=== PATIENT | female | born 1995 | race Caucasian/White ===

== ENCOUNTER 2018-06-20 06:05 | Emergency (ER) | payer SELFPAY ==
[~2018-06-20] VITALS: Ht 172.7 cm; Wt 113.4 kg
[2018-06-20] MEDS ORDERED: RX-CIPROFLOXACIN (CILOXAN) 0.3% OP SOLN 2.5 ML OP STA (06:21)
[2018-06-20] MEDS ORDERED: IBUPROFEN 800 MG (MOTRIN) TAB PO STA (06:21)
--- NOTE | 2018-06-20 06:31 | ED EENT ---
History of Present Illness General Chief Complaint: Ear Problems Stated Complaint: PT STS SOMETHING IN RT EAR-FEELING ALOT OF PAIN Nursing Triage Note: PT PRESENTS TO ER WITH COMPLAINT OF EARPAIN SINCE MIDNIGHT. STATES IT FEELS SOMETHING IS IN HER EAR. Source: patient Exam Limitations: no limitations History of Present Illness Date Seen by Provider: Jun 20, 2018 Time Seen by Provider: 06:16 Initial Comments Here with report of pain to the right ear. States that she feels something in there. Has had a recent upper respiratory infection that she states she is getting over. This included 100 nose and nasal congestion as well as mild sore throat. Denies any drainage from her ear. Timing/Duration: abrupt, yesterday Severity: moderate Location: ear (R) Prearrival Treatment: over the counter meds (ibuprofen last night) Modifying Factors: Improves With Other (and) Associated Symptoms: No cough, No ear drainage, No facial pain/swelling; nasal congestion/drainage Allergies and Home Medications Allergies Coded Allergies: amoxicillin (Verified Allergy, Unknown, 06/20/18) Patient Home Medication List Home Medication List Reviewed: Yes Review of Systems Constitutional: see HPI; No chills; fever Eyes: No Symptoms Reported Ears: See HPI, Pain; Denies Bloody Discharge, Denies Purulent Discharge Nose: congestion; denies pain Mouth: no symptoms reported Throat: no symptoms reported Respiratory: no symptoms reported Cardiovascular: no symptoms reported Gastrointestinal: no symptoms reported Skin: no symptoms reported Past Rykmabj-Hqxkvy-Lseusr Hx Past Med/Social Hx: Reviewed Nursing Past Med/Soc Hx Patient Social History Alcohol Use: Occasionally Uses Recreational Drug Use: No Smoking Status: Current Everyday Smoker Recent Foreign Travel: No Contact w/Someone Who Travel: No Recent Infectious Disease Expo: No Recent Hopitalizations: No Immunizations Up To Date Tetanus Booster (TDap): Unknown PED Vaccines UTD: Yes Seasonal Allergies Seasonal Allergies: No Past Medical History Surgeries: Yes Respiratory: No Cardiac: No Neurological: No Genitourinary: No Gastrointestinal: No Musculoskeletal: No Endocrine: No HEENT: No Cancer: No Psychosocial: No Integumentary: No Blood Disorders: No Family Medical History Reviewed Nursing Family Hx Physical Exam Vital Signs Vital Signs - First Documented 06/20/18 06:15 Temp 97.6 Pulse 88 Resp 20 B/P (MAP) 126/93 (104) Pulse Ox 96 O2 Delivery Room Air Height, Weight, BMI Height: 5'8.00" Weight: 250lbs. oz. 113.070774gc; BMI Method:Stated General Appearance: WD/WN, no apparent distress Eyes: bilateral eye normal inspection, bilateral eye PERRL, bilateral eye EOMI Ears: right ear erythema, right ear tenderness, right ear TM dull, right ear TM red, right ear other (canals swollen and red without purulence. ); left ear auricle normal, left ear canal normal, left ear TM normal Nose: No sinus tenderness; other (congestion bilateral) Mouth/Throat: pharynx normal; No voice changes Neck: full range of motion, supple Cardiovascular: regular rate, rhythm, no murmur Respiratory: lungs clear, normal breath sounds Neurologic/Psychiatric: alert, oriented x 3 Progress/Results/Core Measures Results/Orders My Orders Orders - RHEA LOUIS MD Rx-Ciprofloxacin Ophth Soln (Rx-Ciloxan (06/20/18 06:21) Ibuprofen Tablet (Motrin Tablet) (06/20/18 06:21) Vital Signs/I&O 06/20/18 06:15 Temp 97.6 Pulse 88 Resp 20 B/P (MAP) 126/93 (104) Pulse Ox 96 O2 Delivery Room Air Blood Pressure Mean: 104 Progress Progress Note : Progress Note Seen and evaluated. Ciprofloxacin drops to the right ear. Ibuprofen 800 mg by mouth. Discharged home with return precautions. Patient verbalize understanding instructions and agreement. Departure Impression Primary Impression: Otitis externa of right ear Qualified Codes: H60.391 - Other infective otitis externa, right ear Additional Impression: Otitis media, right Qualified Codes: H66.001 - Acute suppurative otitis media without spontaneous rupture of ear drum, right ear Disposition: 01 HOME, SELF-CARE Condition: Improved Departure-Patient Inst. Decision time for Depature: 06:32 Referrals: NO,LOCAL PHYSICIAN (PCP/Family) Primary Care Physician Patient Instructions: Ear Infections (Otitis Media) (DC), Outer Ear Infection ( DC) Add. Discharge Instructions: All discharge instructions reviewed with patient and/or family. Voiced understanding. Use ear drops 4 drops to the right ear twice daily for the next 7 days. Take other medication as directed. Follow-up with your Dr. in 2-3 days for recheck. You may take ibuprofen 800 mg every 8 hours as needed for fever or pain. You may take Tylenol/acetaminophen 1000 mg every 8 hours as needed for fever pain. Return for worse pain, drainage, fever, breathing problems or other concerns as needed. Scripts Cephalexin (Cephalexin) 500 Mg Tablet 500 MG PO QID, #28 TAB 0 Refills Prov: RHEA LOUIS MD 06/20/18 RHEA LOUIS MD Jun 20, 2018 06:31
[2018-06-20] MEDS ORDERED: CEPH500T PO (06:35)
[2018-06-20 06:41] VITALS: BP 126/93
== END 2018-06-20 06:41 | disposition home or self-care (01) ==
LOC: ER 06:11
DX: H60.91 Unspecified otitis externa, right ear (principal); H66.91 Otitis media, unspecified, right ear; F17.200 Nicotine dependence, unspecified, uncomplicated; Z88.0 Allergy status to penicillin
CPT/HCPCS: 99283

== ENCOUNTER 2018-08-18 23:50 | Emergency (ER) | payer SELFPAY ==
[~2018-08-18 23:50] MED LIST: CEPH500T PO
--- OUTSIDE RECORDS SUMMARY | 2018-08-18 23:56 | XMS REPORT ---
Author Author STACY BRYANT Organization [facility] Address [address] [place] [address] Care Team Providers Care Flight Crew Time Clerk Name Role Phone STACY BRYANT Unavailable PROBLEMS Unknown Problems ALLERGIES Substance Reaction Event Type Date Status Penicillin V Potassium hives Drug Allergy Jun, Active Cephalexin Unknown Drug Allergy Jun, Active ENCOUNTERS Encounter Location Date Diagnosis [facility] [id number] [place] [phone] Jun, Decreased breath sounds R06.89 and Viral upper respiratory tract infection J06.9 [facility] [id number] [place] [phone] Jun, Insect bite (nonvenomous) of abdominal wall, initial encounter S30.861A ; Bitten or stung by nonvenomous insect and other nonvenomous arthropods, initial encounter W57.XXXA and BMI 40.0-44.9, adult Z68.41 [facility] [id number] [place] [phone] March, IMMUNIZATIONS Vaccine Route Administration Date Status DEXAMETHASONE 4MG/ML (PER 1 MG) IM Intramuscular Jul 09, 2018 Administered DEPO MEDROL 40 MG/ML IM Intramuscular Jul 09, 2018 Administered SOCIAL HISTORY Never Assessed REASON FOR VISIT Cough and congestion for a month. elo, was in the ER a month ago...dx with allergies et ear infection. was given sample of ear gtts...reported they helped...but has since ran out PLAN OF CARE Activity Details Follow Up prn Reason: VITAL SIGNS Height 68 in 2018-07-09 Weight 276.2 lbs 2018-07-09 Temperature 98.0 degrees Fahrenheit 2018-07-09 Heart Rate 78 bpm 2018-07-09 Respiratory Rate 20 2018-07-09 BMI 41.99 kg/m2 2018-07-09 Blood pressure systolic 128 mmHg 2018-07-09 Blood pressure diastolic 80 mmHg 2018-07-09 MEDICATIONS Medication Instructions Dosage Frequency Start Date End Date Duration Status DiphenhydrAMINE HCl 25 MG Orally every 8 hrs 1 tablet as needed 8h Active Cetirizine HCl 10 MG Orally Once a day 1 tablet 24h Active RESULTS No Results PROCEDURES Procedure Date Ordered Result Body Site DEPO MEDROL 40 MG/ML Jul 09, 2018 THER/PROPH/DIAG INJ, SC/IM Jul 09, 2018 DEXAMETHASONE 4MG/ML (PER 1 MG) Jul 09, 2018 INSTRUCTIONS MEDICATIONS ADMINISTERED No Known Medications MEDICAL (GENERAL) HISTORY Type Description Date Surgical History urethra stretched Surgical History left ankle surgery - still has hardware in there
--- OUTSIDE RECORDS SUMMARY | 2018-08-18 23:56 | XMS REPORT ---
Author Author ODALYS DURAN [facility] Address [address] [place] [address] Phone Unavailable Care Team Providers Care Band Edger Name Role Phone ODALYS DURAN Unavailable Unavailable PROBLEMS Unknown Problems ALLERGIES No Information ENCOUNTERS Encounter Location Date Diagnosis [facility] [address] [facility] [id number] [place] [address] March, IMMUNIZATIONS No Known Immunizations SOCIAL HISTORY Never Assessed REASON FOR VISIT scheduled work physical PLAN OF CARE VITAL SIGNS MEDICATIONS Unknown Medications RESULTS No Results PROCEDURES No Known procedures INSTRUCTIONS MEDICATIONS ADMINISTERED No Known Medications
== END 2018-08-19 | disposition left against medical advice (07) ==
LOC: EDUNIT# 23:50 → ER 23:52
DX: R11.10 Vomiting, unspecified (principal)

== ENCOUNTER 2018-12-31 14:43 | Emergency (ER) | payer SELFPAY ==
[~2018-12-31] VITALS: Ht 172.7 cm; Wt 158.8 kg
--- OUTSIDE RECORDS SUMMARY | 2018-12-31 14:47 | XMS REPORT ---
Author Author JOSE D ECHOLS Organization [facility] Address [address] [place] [address] Care Team Providers Care Contact Clerk Name Role Phone JOSE D ECHOLS Unavailable PROBLEMS Unknown Problems ALLERGIES Substance Reaction Event Type Date Status Penicillin V Potassium hives Drug Allergy Jun, Active ENCOUNTERS Encounter Location Date Diagnosis [facility] [id number] [place] [phone] Sep, Acute non-recurrent maxillary sinusitis J01.00 [facility] [place] [id number] [place] [phone] Jun, Decreased breath sounds R06.89 and Viral upper respiratory tract infection J06.9 [facility] [id number] [place] [phone] Jun, Insect bite (nonvenomous) of abdominal wall, initial encounter S30.861A ; Bitten or stung by nonvenomous insect and other nonvenomous arthropods, initial encounter W57.XXXA and BMI 40.0-44.9, adult Z68.41 [facility] [place] [id number] [place] [phone] March, IMMUNIZATIONS No Known Immunizations SOCIAL HISTORY Never Assessed REASON FOR VISIT red circular area on right lower abdomen since last noc. reports burning. no drainage from site. [email or web address] PLAN OF CARE Activity Details Follow Up prn Reason: VITAL SIGNS Height 68 in 2018-07-04 Weight 274.5 lbs 2018-07-04 Temperature 98.5 degrees Fahrenheit 2018-07-04 Heart Rate 76 bpm 2018-07-04 Respiratory Rate 20 2018-07-04 BMI 41.73 kg/m2 2018-07-04 Blood pressure systolic 126 mmHg 2018-07-04 Blood pressure diastolic 78 mmHg 2018-07-04 MEDICATIONS Medication Instructions Dosage Frequency Start Date End Date Duration Status Triamcinolone Acetonide 0.1 % Externally Twice a day 1 application to affected area 12h 14 Jun, 2018 5 days Active RESULTS No Results PROCEDURES No Known procedures INSTRUCTIONS MEDICATIONS ADMINISTERED No Known Medications MEDICAL (GENERAL) HISTORY Type Description Date Surgical History urethra stretched Surgical History left ankle surgery - still has hardware in there
--- OUTSIDE RECORDS SUMMARY | 2018-12-31 14:48 | XMS REPORT ---
Author Author MALIKA JUNIOR Organization [facility] Address [address] [place] [address] Care Team Providers Care Director Of Undergraduate Admissions Name Role Phone MALIKA JUNIOR Unavailable PROBLEMS Unknown Problems ALLERGIES Substance Reaction Event Type Date Status Penicillin V Potassium hives Drug Allergy Sep, Active Cephalexin Unknown Drug Allergy Sep, Active ENCOUNTERS Encounter Location Date Diagnosis [facility] [id number] [place] [phone] Sep, Acute non-recurrent maxillary sinusitis J01.00 [facility] [id number] [place] [phone] Jun, Decreased breath sounds R06.89 and Viral upper respiratory tract infection J06.9 [facility] [id number] [place] [phone] Jun, Insect bite (nonvenomous) of abdominal wall, initial encounter S30.861A ; Bitten or stung by nonvenomous insect and other nonvenomous arthropods, initial encounter W57.XXXA and BMI 40.0-44.9, adult Z68.41 [facility] [id number] [place] [phone] March, IMMUNIZATIONS No Known Immunizations SOCIAL HISTORY Never Assessed REASON FOR VISIT sore throat/vomiting- nasal congestion started a couple weeks ago [email or web address] PLAN OF CARE Activity Details Follow Up if not improving or with pcp for regular fu Reason: VITAL SIGNS Height 68 in 2018-09-24 Weight 259.2 lbs 2018-09-24 Temperature 98.2 degrees Fahrenheit 2018-09-24 Heart Rate 90 bpm 2018-09-24 Respiratory Rate 20 2018-09-24 BMI 39.41 kg/m2 2018-09-24 Blood pressure systolic 100 mmHg 2018-09-24 Blood pressure diastolic 70 mmHg 2018-09-24 MEDICATIONS Medication Instructions Dosage Frequency Start Date End Date Duration Status Clarithromycin 500 mg Orally every 12 hrs 1 tablet 12h Sep,Sep 10 day(s) Active RESULTS No Results PROCEDURES No Known procedures INSTRUCTIONS MEDICATIONS ADMINISTERED No Known Medications MEDICAL (GENERAL) HISTORY Type Description Date Surgical History urethra stretched Surgical History left ankle surgery - still has hardware in there
--- NOTE | 2018-12-31 14:54 | ED General ---
General Stated Complaint: FEVER,N/V Source of Information: Patient, Family Exam Limitations: No Limitations History of Present Illness Date Seen by Provider: Dec 31, 2018 Time Seen by Provider: 14:53 Initial Comments This 23-year-old female presents with a complaint of fever, nausea and vomiting , sore throat, and general malaise. The patient is no associated headache, stiff neck, photophobia, productive cough or shortness of breath, diarrhea or dysuria, or rash. Patient's emesis has been benign. Allergies and Home Medications Allergies Coded Allergies: amoxicillin (Verified Allergy, Unknown, 12/31/18) Home Medications Cephalexin 500 Mg Tablet, 500 MG PO QID Prescribed by: RHEA LOUIS on 06/20/18 0635 Patient Home Medication List Home Medication List Reviewed: Yes Review of Systems Review of Systems Constitutional: No chills; fever, malaise EENTM: No throat pain Respiratory: No cough Cardiovascular: No chest pain Gastrointestinal: No abdominal pain, No diarrhea; nausea, vomiting Genitourinary: dysuria, frequency : No Musculoskeletal: no symptoms reported Skin: no symptoms reported Psychiatric/Neurological: No Symptoms Reported Hematologic/Lymphatic: No Symptoms Reported Immunological/Allergic: no symptoms reported Past Avxtxyf-Gxtdeh-Yqcrev Hx Past Med/Social Hx: Reviewed Nursing Past Med/Soc Hx Patient Social History Recent Foreign Travel: No Contact w/Someone Who Travel: No Recent Hopitalizations: No Immunizations Up To Date Tetanus Booster (TDap): Unknown PED Vaccines UTD: Yes Seasonal Allergies Seasonal Allergies: No Past Medical History Surgeries: Yes Respiratory: No Cardiac: No Neurological: No Genitourinary: No Gastrointestinal: No Musculoskeletal: No Endocrine: No HEENT: No Cancer: No Psychosocial: No Integumentary: No Blood Disorders: No Physical Exam Vital Signs Vital Signs - First Documented Capillary Refill : Height, Weight, BMI Height: 5'8.00" Weight: 250lbs. oz. 113.505174ck; BMI Method:Stated General Appearance: No Apparent Distress, WD/WN Eyes: Bilateral Eye Normal Inspection Neck: Normal Inspection Respiratory: Lungs Clear Cardiovascular: Regular Rate, Rhythm Gastrointestinal: Normal Bowel Sounds, Non Tender Back: Normal Inspection Extremity: Normal Inspection, Normal Range of Motion Neurologic/Psychiatric: Alert, No Motor/Sensory Deficits, Normal Mood/Affect Skin: Normal Color, Warm/Dry; No Rash Progress/Results/Core Measures Suspected Sepsis SIRS Temperature: Pulse: Respiratory Rate: Laboratory Tests 12/31/18 14:57: White Blood Count 16.0H Blood Pressure / Mean: Laboratory Tests 12/31/18 14:57: Creatinine 0.69, Platelet Count 445H, Total Bilirubin 0.3 Results/Orders Lab Results Laboratory Tests Test 12/31/18 14:57 12/31/18 15:06 Range/Units White Blood Count 16.0 H 4.3-11.0 10^3/uL Red Blood Count 4.85 4.35-5.85 10^6/uL Hemoglobin 11.8 11.5-16.0 G/DL Hematocrit 37 35-52 % Mean Corpuscular Volume 76 L 80-99 FL Mean Corpuscular Hemoglobin 24 L 25-34 PG Mean Corpuscular Hemoglobin Concent 32 32-36 G/DL Red Cell Distribution Width 16.5 H 10.0-14.5 % Platelet Count 445 H 130-400 10^3/uL Mean Platelet Volume 8.7 7.4-10.4 FL Neutrophils (%) (Auto) 83 H 42-75 % Lymphocytes (%) (Auto) 10 L 12-44 % Monocytes (%) (Auto) 7 0-12 % Eosinophils (%) (Auto) 1 0-10 % Basophils (%) (Auto) 0 0-10 % Neutrophils # (Auto) 13.2 H 1.8-7.8 X 10^3 Lymphocytes # (Auto) 1.6 1.0-4.0 X 10^3 Monocytes # (Auto) 1.0 0.0-1.0 X 10^3 Eosinophils # (Auto) 0.1 0.0-0.3 10^3/uL Basophils # (Auto) 0.1 0.0-0.1 10^3/uL Neutrophils % (Manual) 83 % Lymphocytes % (Manual) 10 % Monocytes % (Manual) 7 % Blood Morphology Comment NORMAL Sodium Level 138 135-145 MMOL/L Potassium Level 3.4 L 3.6-5.0 MMOL/L Chloride Level 104 98-107 MMOL/L Carbon Dioxide Level 24 21-32 MMOL/L Anion Gap 10 5-14 MMOL/L Blood Urea Nitrogen 7 7-18 MG/DL Creatinine 0.69 0.60-1.30 MG/DL Estimat Glomerular Filtration Rate > 60 BUN/Creatinine Ratio 10 Glucose Level 89 70-105 MG/DL Calcium Level 9.4 8.5-10.1 MG/DL Corrected Calcium 9.2 8.5-10.1 MG/DL Total Bilirubin 0.3 0.1-1.0 MG/DL Aspartate Amino Transf (AST/SGOT) 26 5-34 U/L Alanine Aminotransferase (ALT/SGPT) 43 0-55 U/L Alkaline Phosphatase 80 40-136 U/L Total Protein 8.1 6.4-8.2 GM/DL Albumin 4.3 3.2-4.5 GM/DL Lipase 15 8-78 U/L Urine Color YELLOW Urine Clarity SLIGHTLY CLOUDY Urine pH 7 5-9 Urine Specific [place] 1.010 L 1.016-1.022 Urine Protein NEGATIVE NEGATIVE Urine Glucose (UA) NEGATIVE NEGATIVE Urine Ketones NEGATIVE NEGATIVE Urine Nitrite NEGATIVE NEGATIVE Urine Bilirubin NEGATIVE NEGATIVE Urine Urobilinogen NORMAL NORMAL MG/DL Urine Leukocyte Esterase 2+ H NEGATIVE Urine RBC (Auto) NEGATIVE NEGATIVE Urine RBC NONE /HPF Urine WBC RARE /HPF Urine Squamous Epithelial Cells 25-50 H /HPF Urine Crystals PRESENT H /LPF Urine Amorphous Sediment FEW ABI URATES H /LPF Urine Bacteria FEW H /HPF Urine Casts NONE /LPF Urine Mucus NEGATIVE /LPF Urine Culture Indicated YES My Orders Orders - CELINA BARTLETT MD Fentanyl Injection (Sublimaze Injection (12/31/18 15:00) Rapid Strep A Screen (12/31/18 14:54) Diphenhydramine Injection (Benadryl Inje (12/31/18 15:45) Promethazine Injection (Phenergan Injec (12/31/18 15:45) Ns Iv 1000 Ml (Sodium Chloride 0.9%) (12/31/18 15:45) Medications Given in ED Current Medications Medications Dose Ordered Sig/Kiki Route Start Time Stop Time Status Last Admin Dose Admin Diphenhydramine HCl 25 mg ONCE ONCE IVP 12/31/18 15:45 12/31/18 15:46 DC 12/31/18 15:57 25 MG Fentanyl Citrate 50 mcg ONCE ONCE IVP 12/31/18 15:00 12/31/18 15:01 DC 12/31/18 15:04 50 MCG Ondansetron HCl 8 mg ONCE ONCE IVP 12/31/18 15:00 12/31/18 15:01 DC 12/31/18 15:04 8 MG Promethazine HCl 25 mg ONCE ONCE IVP 12/31/18 15:45 12/31/18 15:46 DC 12/31/18 15:57 25 MG Vital Signs/I&O 12/31/18 12/31/18 15:00 15:00 Temp 98.6 Pulse 108 Resp 14 B/P (MAP) 115/92 (100) Pulse Ox 97 O2 Delivery Room Air Room Air Capillary Refill : Progress Note : Time: 16:39 Progress Note The patient was much improved following 2 L of IV fluids, Zofran, Phenergan and Benadryl. The patient's laboratory evaluation demonstrated a urinary tract infection. ECG Initial ECG Impression Date: Dec 31, 2018 Departure Impression Primary Impression: Vomiting Qualified Codes: R11.2 - Nausea with vomiting, unspecified Additional Impression: Urinary tract infection Qualified Codes: N30.00 - Acute cystitis without hematuria Disposition: 01 HOME, SELF-CARE Condition: Improved Departure-Patient Inst. Decision time for Depature: 16:42 Referrals: [facility],LOCAL PHYSICIAN (PCP) Primary Care Physician Patient Instructions: Acute Cystitis (DC), Nausea and Vomiting, Adult Add. Discharge Instructions: Zofran for further nausea. Bactrim for urinary tract infection. Close follow- up. Doctor tomorrow. Clear liquids tonight. Return if any problems or questions. CELINA BARTLETT MD Dec 31, 2018 14:54
[2018-12-31] MEDS ORDERED: fentaNYL INJECTION 100 MCG/2 ML AMP IVP ONE (15:00)
[2018-12-31] MEDS ORDERED: LACTATED RINGERS 1,000 ML IV SCH (15:00)
[2018-12-31] MEDS ORDERED: ONDANSETRON 4 MG/2 ML (SDV) Z0FRAN IVP ONE (15:00)
[2018-12-31 15:05] LABS: BASOPHILS # (AUTO) 0.1 10^3/uL (0.0-0.1); BASOPHILS % (AUTO) 0 % (0-10); EOSINOPHILS # (AUTO) 0.1 10^3/uL (0.0-0.3); EOSINOPHILS % (AUTO) 1 % (0-10); HEMATOCRIT 37 % (35-52); HEMOGLOBIN 11.8 G/DL (11.5-16.0); LYMPHOCYTES # (AUTO) 1.6 X 10^3 (1.0-4.0); LYMPHOCYTES % (AUTO) 10 % (12-44); MEAN CORPUSCULAR HEMOGLOBIN 24 PG (25-34); MEAN CORPUSCULAR HGB CONC 32 G/DL (32-36); MEAN CORPUSCULAR VOLUME 76 FL (80-99); MEAN PLATELET VOLUME 8.7 FL (7.4-10.4); MONOCYTES % (AUTO) 7 % (0-12); NEUTROPHILS # (AUTO) 13.2 X 10^3 (1.8-7.8); NEUTROPHILS % (AUTO) 83 % (42-75); PLATELET COUNT 445 10^3/uL (130-400); RED CELL DISTRIBUTION WIDTH 16.5 % (10.0-14.5)
[2018-12-31 15:12] LABS: BILIRUBIN,URINE NEGATIVE (NEGATIVE); CLARITY,URINE SLIGHTLY CLOUDY; COLOR,URINE YELLOW; GLUCOSE, URINE (UA) NEGATIVE (NEGATIVE); KETONES,URINE NEGATIVE (NEGATIVE); LEUKOCYTE ESTERASE ,URINE 2+ (NEGATIVE); NITRITE,URINE NEGATIVE (NEGATIVE); PH,URINE 7 (5-9); PROTEIN,URINE NEGATIVE (NEGATIVE); UROBILINOGEN,URINE NORMAL (NORMAL)
[2018-12-31 15:22] LABS: ALANINE AMINOTRANSFERASE 43 U/L (0-55); ALBUMIN 4.3 GM/DL (3.2-4.5); ALKALINE PHOSPHATASE 80 U/L (40-136); BILIRUBIN,TOTAL 0.3 MG/DL (0.1-1.0); BUN/CREATININE RATIO 10; CALCIUM 9.4 MG/DL (8.5-10.1); CARBON DIOXIDE 24 MMOL/L (21-32); CHLORIDE 104 MMOL/L (98-107); CREATININE SERUM 0.69 MG/DL (0.60-1.30); GFR ESTIMATED > 60; GLUCOSE 89 MG/DL (70-105); LIPASE 15 U/L (8-78); POTASSIUM 3.4 MMOL/L (3.6-5.0); SODIUM 138 MMOL/L (135-145); TOTAL PROTEIN 8.1 GM/DL (6.4-8.2)
[2018-12-31 15:33] LABS: AMORPHOUS SEDIMENT,UR FEW AMOR URATES /LPF; BACTERIA,URINE FEW /HPF; SQUAMOUS EPITHELIAL CELL,UR 25-50 /HPF; WBC,URINE RARE /HPF
[2018-12-31] MEDS ORDERED: PROMETHAZINE INJ 25 MG/ML (PHENERGAN) AMP IVP ONE (15:45)
[2018-12-31] MEDS ORDERED: NS IV 1000 ML 1,000 ML IV SCH (15:45)
[2018-12-31] MEDS ORDERED: diphenhydrAMINE 50 MG/ML INJ (BENADRYL) IVP ONE (15:45)
[2018-12-31 15:47] LABS: LYMPHOCYTES % (MANUAL) 10 %; MONOCYTES % (MANUAL) 7 %; NEUTROPHILS % (MANUAL) 83 %; RBC MORPH NORMAL
[2018-12-31 16:58] VITALS: BP 125/79
== END 2018-12-31 16:59 | disposition home or self-care (01) ==
LOC: EDUNIT# 14:43 → ER 14:44
DX: N39.0 Urinary tract infection, site not specified (principal); Z88.0 Allergy status to penicillin
CPT/HCPCS: 36415; 80053; 81000; 83690; 84703; 85007; 85027; 87077; 87088; 87430; 99284

== ENCOUNTER 2019-02-13 00:12 | Emergency (ER) | payer SELFPAY ==
--- NOTE | 2019-02-13 01:15 | NUR ---
CALLED PT'S NAME IN WAITING ROOM, NO ANSWER. PT NOT PRESENT IN WAITING ROOM OR RESTROOM
[2019-02-14] MEDS ORDERED: ACHD5005 PO (19:16)
[2019-02-14] MEDS ORDERED: ONDN4T PO (19:16)
== END 2019-02-13 01:15 | disposition left against medical advice (07) ==
LOC: EDUNIT# 00:12 → ER 00:15
DX: H92.02 Otalgia, left ear (principal); R52 Pain, unspecified

== ENCOUNTER 2019-02-14 18:50 | Emergency (ER) | payer SELFPAY ==
[~2019-02-14] VITALS: Ht 172.7 cm; Wt 127.0 kg
[2019-02-14] MEDS ORDERED: ACHD5005 PO (19:16)
[2019-02-14] MEDS ORDERED: ONDN4T PO (19:16)
[2019-02-14] MEDS ORDERED: RX-ONDANSETRON 4 MG ODT (ZOFRAN) PPK #4 PO STA (19:16)
--- NOTE | 2019-02-14 19:16 | ED EENT ---
History of Present Illness General Chief Complaint: Dental Problems/Pain Stated Complaint: PAIN IN NECK, HAS ABCESS TOOTH Nursing Triage Note: PT REPORTS DENTAL ABCESS FOR LAST 3 DAYS THAT HAS GOTTEN WORSE. PT NOW HAS NAUSEA, TURCIOS, NECK PAIN, AND DIZZINESS. PT HAS VISIBLE SWELLING TO LEFT CHEEK. Source: patient Exam Limitations: no limitations History of Present Illness Date Seen by Provider: Feb 14, 2019 Time Seen by Provider: 19:00 Initial Comments 23-year-old female who presents to the emergency room with complaints of increasing pain to her dental abscess on her left lower side. She has been using ice to the area and is currently on clindamycin and reports that the swelling has improved. She denies fevers. Reports nausea. Allergies and Home Medications Allergies Coded Allergies: amoxicillin (Verified Allergy, Unknown, 02/14/19) Home Medications Cephalexin 500 Mg Tablet, 500 MG PO QID Prescribed by: RHEA LOUIS on 06/20/18 0635 Past Quxbhgj-Bnqoys-Avllgo Hx Patient Social History Alcohol Use: Rarely Uses Recreational Drug Use: No Smoking Status: Light Tobacco Smoker Type Used: Cigarettes Former Smoker, Quit: Nov 20, 2018 Recent Foreign Travel: No Contact w/Someone Who Travel: No Recent Infectious Disease Expo: No Recent Hopitalizations: No Immunizations Up To Date Tetanus Booster (TDap): Unknown PED Vaccines UTD: Yes Seasonal Allergies Seasonal Allergies: No Past Medical History Surgeries: Yes (urethral opening) Orthopedic Respiratory: No Cardiac: No Neurological: No Genitourinary: No Gastrointestinal: No Musculoskeletal: No Endocrine: No HEENT: No Cancer: No Psychosocial: No Integumentary: No Blood Disorders: No Physical Exam Vital Signs Vital Signs - First Documented 02/14/19 18:55 Temp 98.6 Pulse 103 Resp 16 B/P (MAP) 149/99 (116) Pulse Ox 98 Height, Weight, BMI Height: 5'8.00" Weight: 280lbs. oz. 127.697550wh; BMI Method:Stated Progress/Results/Core Measures Results/Orders Vital Signs/I&O 02/14/19 18:55 Temp 98.6 Pulse 103 Resp 16 B/P (MAP) 149/99 (116) Pulse Ox 98 Blood Pressure Mean: 116 Departure Impression Primary Impression: Dental abscess Disposition: 01 HOME, SELF-CARE Condition: Stable/Unchanged Departure-Patient Inst. Decision time for Depature: 19:14 Referrals: [facility] (PCP/Family) Primary Care Physician Patient Instructions: Tooth Abscess (DC) Add. Discharge Instructions: Continue the clindamycin as previously prescribed. Take the pain medication and nausea medication as directed. Be sure to make your appointment for your dental extraction. Follow-up with your primary care provider within 1 week for recheck. Return back to the emergency room for worsening symptoms or concerns as needed. All discharge instructions reviewed with patient and/or family. Voiced understanding. Scripts Ondansetron HCl (Zofran) 4 Mg Tab 4 MG PO Q4H PRN for NAUSEA/VOMITING-1ST LINE, #14 TAB Prov: SHANDA FARIAS 02/14/19 Hydrocodone Bit/Acetaminophen (Hydrocodone/Acetaminophen 5/325mg Tablet) 1 Tab Tab 1 EACH PO Q4-6HR PRN for PAIN-MODERATE MDD 10, #14 TAB Prov: SHANDA FARIAS 02/14/19 SHANDA FARIAS Feb 14, 2019 19:16
[2019-02-14 19:24] VITALS: BP 149/99
[2019-02-14] MEDS ORDERED: RX-HYDROCODONE/APAP 5/325 MG #4 TAB PK PO PRN (19:30)
== END 2019-02-14 19:24 | disposition home or self-care (01) ==
LOC: EDUNIT# 18:50 → ER 18:52
DX: K04.7 Periapical abscess without sinus (principal); F17.210 Nicotine dependence, cigarettes, uncomplicated; Z88.1 Allergy status to other antibiotic agents
CPT/HCPCS: 99283

== ENCOUNTER 2019-02-15 03:22 | Emergency (ER) | payer OTHER ==
[~2019-02-15] VITALS: Ht 172.7 cm; Wt 127.0 kg
[~2019-02-15 03:22] MED LIST changes: +ACHD5005 PO; +ONDN4T PO
[2019-02-15] MEDS ORDERED: KETOROLAC 60 MG/2 ML VIAL IM STA (04:06)
[2019-02-15] MEDS ORDERED: ONDANSETRON 4 MG (ZOFRAN) ORAL DISSOLVE TAB SL STA (04:06)
[2019-02-15] MEDS ORDERED: cefTRIAXone 1,000 MG/2.86 ml vial (IM ONLY) IM ONE (04:15)
[2019-02-15] MEDS ORDERED: LIDOCAINE 1% INJ 20 ML 20 ML VIAL INJ ONE (04:15)
--- NOTE | 2019-02-15 04:30 | ED General ---
General Chief Complaint: General Problems/Pain Stated Complaint: PAINFULL ABSCESS LEFT SIDE OF GUM Source of Information: Patient, Family Exam Limitations: No Limitations History of Present Illness Date Seen by Provider: Feb 15, 2019 Time Seen by Provider: 04:01 Initial Comments Here with left-sided lower jaw facial pain and tenderness along swelling. Currently on clindamycin for dental abscess. Seen several times in the last few days or at least presented. Amylase 22 and she left before being seen. She was prescribed nausea and pain medicine. She has not picked those scripts up yet but does have go packs given last night. She apparently woke up with increased pain and nausea. She took a Zofran and a pain pill at 2 AM and that did not help so she presented for further evaluation. She has not had ibuprofen since yesterday at noon. Timing/Duration: 3-4 Days Severity: Moderate Modifying Factors: improves with Medication Associated Systoms: No Cough, No Fever/Chills; Nausea/Vomiting; No Shortness of Air, No Weakness Allergies and Home Medications Allergies Coded Allergies: amoxicillin (Verified Allergy, Unknown, 02/14/19) Home Medications Cephalexin 500 Mg Tablet, 500 MG PO QID Prescribed by: RHEA LOUIS on 06/20/18 0635 Hydrocodone Bit/Acetaminophen 1 Tab Tab, 1 EACH PO Q4-6HR PRN for PAIN-MODERATE Prescribed by: SHANDA FARIAS on 02/14/191915 Ondansetron HCl 4 Mg Tab, 4 MG PO Q4H PRN for NAUSEA/VOMITING-1ST LINE Prescribed by: SHANDA FARIAS on 02/14/191915 Patient Home Medication List Home Medication List Reviewed: Yes Review of Systems Review of Systems Constitutional: see HPI, chills; No fever EENTM: see HPI, mouth pain, mouth swelling Respiratory: No cough, No short of breath Cardiovascular: no symptoms reported Gastrointestinal: No abdominal pain; nausea, vomiting Musculoskeletal: no symptoms reported Skin: no symptoms reported All Other Systems Reviewed Negative Unless Noted: Yes Past Jwvrxrl-Ehjxzc-Ozwofi Hx Past Med/Social Hx: Reviewed Nursing Past Med/Soc Hx Patient Social History Alcohol Use: Occasionally Uses Recreational Drug Use: No Smoking Status: Former Smoker Type Used: Cigarettes Former Smoker, Quit: Nov 20, 2018 Recent Foreign Travel: No Contact w/Someone Who Travel: No Recent Hopitalizations: No Immunizations Up To Date Tetanus Booster (TDap): Unknown PED Vaccines UTD: Yes Seasonal Allergies Seasonal Allergies: No Past Medical History Surgeries: Yes (urethral opening) Orthopedic Respiratory: No Cardiac: No Neurological: No Genitourinary: No Gastrointestinal: No Musculoskeletal: No Endocrine: No HEENT: No Cancer: No Psychosocial: No Integumentary: No Blood Disorders: No Family Medical History Reviewed Nursing Family Hx Physical Exam Vital Signs Vital Signs - First Documented 02/15/19 03:45 Temp 97.8 Pulse 92 Resp 18 B/P (MAP) 132/100 (111) Capillary Refill : Height, Weight, BMI Height: 5'8.00" Weight: 280lbs. oz. 127.717762oh; BMI Method:Stated General Appearance: WD/WN, Obese HEENT: PERRL/EOMI, Pharynx Normal, Other (Left facial swelling near the angle of the jaw. Dental carry and inflammation noted near #17.) Neck: Non Tender, Supple Respiratory: Lungs Clear, Normal Breath Sounds Cardiovascular: Regular Rate, Rhythm, No Murmur Gastrointestinal: Non Tender, Soft Back: Normal Inspection, No CVA Tenderness, No Vertebral Tenderness Extremity: Normal Range of Motion, Non Tender Neurologic/Psychiatric: Alert, Oriented x3 Skin: Normal Color, Warm/Dry Progress/Results/Core Measures Suspected Sepsis SIRS Temperature: Pulse: Respiratory Rate: Blood Pressure / Mean: Results/Orders My Orders Orders - RHEA LOUIS MD Ondansetron Oral Dissolve Tab (Zofran (02/15/19 04:06) Ketorolac Injection (Toradol Injection) (02/15/19 04:06) Ceftriaxone For Im Use (Rocephin For Im (02/15/19 04:15) Lidocaine 1% Inj 20 Ml (Xylocaine 1% Inj (02/15/19 04:15) Medications Given in ED Current Medications Medications Dose Ordered Sig/Kiki Route Start Time Stop Time Status Last Admin Dose Admin Ceftriaxone Sodium 1,000 mg ONCE ONCE IM 02/15/19 04:15 02/15/19 04:16 DC 02/15/19 04:23 1,000 MG Lidocaine HCl 2.1 ml ONCE ONCE INJ 02/15/19 04:15 02/15/19 04:16 DC 02/15/19 04:23 2.1 ML Vital Signs/I&O 02/15/19 03:45 Temp 97.8 Pulse 92 Resp 18 B/P (MAP) 132/100 (111) Capillary Refill : Progress Note : Progress Note Seen and evaluated. Toradol 60 mg IM, Zofran 4 mg by mouth and Rocephin 1 g IM ordered. Monitor patient. 0510: Overall improved somewhat. Patient like to go home. Discharged home with return precautions. Patient verbalize understanding instructions and agreement with plan. Departure Impression Primary Impression: Dental abscess Additional Impression: Moderate nausea Disposition: 01 HOME, SELF-CARE Condition: Improved Departure-Patient Inst. Decision time for Depature: 05:12 Referrals: [facility] (PCP/Family) Primary Care Physician Patient Instructions: Tooth Abscess (DC) Add. Discharge Instructions: All discharge instructions reviewed with patient and/or family. Voiced understanding. Continue medications as prescribed. Follow-up with a dentist as soon as possible. Clear liquid or light diet for the next 24 hours and then advance as tolerated. You may take ibuprofen 800 mg every 8 hours as needed for pain. Take pain pills as prescribed. If you're not taking the prescribed pain pills that he may take Tylenol/acetaminophen 1000 mg every 8 hours as needed for pain. Do not take both of the same time as they both have acetaminophen in them. Return for worse pain, fever, vomiting, weakness, rhythm problems or other concerns as needed. Images Mouth/Nose 1 - Caries, Swelling, Tenderness RHEA LOUIS MD Feb 15, 2019 04:30
[2019-02-15 05:17] VITALS: BP 128/99
== END 2019-02-15 05:18 | disposition home or self-care (01) ==
LOC: EDUNIT# 03:22 → ER 03:24
DX: K04.7 Periapical abscess without sinus (principal); R11.0 Nausea; Z88.1 Allergy status to other antibiotic agents; Z87.891 Personal history of nicotine dependence
CPT/HCPCS: 99284